=== PATIENT | female | born 1985 | race Caucasian/White ===

== ENCOUNTER 2024-12-05 16:33 | Observation (INO) | payer BC, OTHER ==
[2024-12-05] MEDS: Acetaminophen 500 MG Tab PO ONE ×2 (17:10→19:55)
[2024-12-05] MEDS: Lactated Ringers 1,000 ML IV SCH (17:10)
[2024-12-05 17:12] LABS: BASOPHILS ABSOLUTE AUTO 0.04 K/uL (0.00-0.10); BASOPHILS PERCENT AUTO 0.3 % (0.1-1.3); EOSINOPHILS ABSOLUTE AUTO 0.05 K/uL (0.00-0.40); EOSINOPHILS PERCENT AUTO 0.4 % (0.0-5.4); HEMATOCRIT 40.1 % (34.3-46.0); HEMOGLOBIN 13.7 g/dL (11.2-15.5); IMMATURE GRAN ABSOLUTE AUTO 0.05 K/uL (0.00-0.23); IMMATURE GRAN PERCENT AUTO 0.4 % (0.0-0.7); LYMPHOCYTES PERCENT AUTO 11.5 % (11.4-47.7); MEAN CORPUSCULAR HEMOGLOBIN 29.9 pg (31.6-35.5); MEAN CORPUSCULAR HGB CONC 34.2 g/dL (31.6-35.5); MEAN CORPUSCULAR VOLUME 87.6 fL (81.4-99.0); MONOCYTES ABSOLUTE AUTO 0.73 K/uL (0.20-0.90); NEUTROPHILS ABSOLUTE AUTO 9.86 K/uL (1.0-7.6); NEUTROPHILS PERCENT AUTO 81.4 % (40.0-78.1); PLATELET COUNT,PLT 386 K/uL (130-375); RED BLOOD CELL COUNT 4.58 M/uL (3.77-5.24); WHITE BLOOD CELL COUNT,WBC 12.1 K/uL (3.2-11.0)
[2024-12-05 17:32] LABS: A/G RATIO 0.8 (1.2-2.2); ALANINE AMINOTRANSFERASE,ALT 34 U/L (12-78); ALBUMIN 3.7 g/dL (3.4-5.0); ALKALINE PHOSPHATASE 124 U/L (46-116); ANION GAP 16.6 mmol/L (5.0-14.0); ASPARTATE AMNIOTRANSFERASE,AST 19 U/L (15-37); BILIRUBIN TOTAL 0.4 mg/dL (0.2-1.0); BLOOD UREA NITROGEN,BUN 8 mg/dL (7-18); C-REACTIVE PROTEIN 4.96 mg/dL (<0.50); CALCIUM 9.9 mg/dL (8.5-10.1); CARBON DIOXIDE,CO2 23 mmol/L (21-32); CHLORIDE,CL 97 mmol/L (100-108); CREATININE 0.7 mg/dL (0.6-1.0); EST CRCL DRUG DOSING (CG) 89.26 mL/min; ESTIMATED GFR 113 mL/min (>60); GLUCOSE RANDOM 99 mg/dL (74-106); POTASSIUM,K 3.6 mmol/L (3.6-5.2); PROTEIN TOTAL,TP 8.2 g/dL (6.4-8.2); SODIUM,NA 133 mmol/L (140-148)
[2024-12-05 17:37] LABS: LACTIC ACID 1.3 mmol/L (0.4-2.0)
[2024-12-05 17:45] LABS: APPEARANCE,URINE CLEAR (CLEAR); BILIRUBIN,URINE NEGATIVE (NEGATIVE); COLOR,URINE YELLOW (YELLOW); GLUCOSE,URINE NEGATIVE (NEGATIVE); KETONES,URINE NEGATIVE (NEGATIVE); LEUKOCYTE ESTERASE,URINE NEGATIVE (NEGATIVE); NITRITE,URINE NEGATIVE (NEGATIVE); OCCULT BLOOD,URINE NEGATIVE (NEGATIVE); PROTEIN,URINE NEGATIVE (NEGATIVE); UROBILINOGEN,URINE 0.2 EU/dL (0.2-1.0)
[2024-12-05] MEDS: Iopamidol 612 MG/ML 100 ML Bottle IV SCH (17:51)
[2024-12-05] MEDS: Sodium Chloride 0.9% 80 ML IV SCH (17:51)
[2024-12-05 17:57] LABS: AMORPHOUS SEDIMENT,URINE NOT SEEN; BACTERIA,URINE RARE; EPITHELIAL CELLS,URINE RARE; MUCUS,URINE NOT SEEN; RBC,URINE 0-5 (0-5); WBC,URINE NOT SEEN (0-5)
[2024-12-05] MEDS: Piperacillin/Tazobactam 3.375 GM in Sodium Chloride 0.9% 50 ML IV SCH (20:04)
[2024-12-05] MEDS ORDERED: Nicotine 7 MG/24 Hr Patch TRDERM PRN (21:24)
[2024-12-05] MEDS ORDERED: fentaNYL 50 MCG/ML SDV IVPUSH PRN ×3 (21:24→21:37)
[2024-12-05] MEDS ORDERED: diphenhydrAMINE 50 MG/ML SDV IVPUSH PRN (21:24)
[2024-12-05] MEDS ORDERED: Morphine 2 MG/ML SYRINGE IVPUSH PRN ×2 (21:24)
[2024-12-05] MEDS ORDERED: Ondansetron 4 MG/2 ML SDV IVPUSH PRN (21:24)
[2024-12-05] MEDS ORDERED: Promethazine 12.5 MG in Sodium Chloride 0.9% 50 ML IV PRN (21:24)
[2024-12-05] MEDS ORDERED: Morphine 4 MG/ML Syringe IVPUSH PRN (21:24)
[2024-12-05] MEDS ORDERED: Scopalamine 1mg/3day Transdermal Patch TOP PRN (21:24)
[2024-12-05] MEDS: Piperacillin/Tazobactam 4.5 GM in Sodium Chloride 0.9% 100 ML IV SCH (23:59)
[2024-12-06] MEDS: Sodium Chloride 0.9% 100 ML IV SCH (00:20)
[2024-12-06 05:54] LABS: HEMATOCRIT 40.4 % (34.3-46.0); HEMOGLOBIN 13.4 g/dL (11.2-15.5); MEAN CORPUSCULAR HEMOGLOBIN 29.4 pg (31.6-35.5); MEAN CORPUSCULAR HGB CONC 33.2 g/dL (31.6-35.5); MEAN CORPUSCULAR VOLUME 88.6 fL (81.4-99.0); RED BLOOD CELL COUNT 4.56 M/uL (3.77-5.24); WHITE BLOOD CELL COUNT,WBC 8.2 K/uL (3.2-11.0)
[2024-12-06 06:13] LABS: CALCIUM 9.3 mg/dL (8.5-10.1); CREATININE 0.8 mg/dL (0.6-1.0); EST CRCL DRUG DOSING (CG) 78.1 mL/min
[2024-12-06] MEDS: Piperacillin/Tazobactam/Dext 4.5 GM in Premix Bag 1 BAG IV SCH (08:07)
[2024-12-06] MEDS ORDERED: fentaNYL 250 MCG/5 ML SDV ONE ×2 (08:31→10:38)
[2024-12-06] MEDS ORDERED: Ondansetron 4 MG/2 ML SDV ONE (08:32)
[2024-12-06] MEDS ORDERED: Glycopyrrolate 0.2 MG/ML 5 ML MDV ONE (08:32)
[2024-12-06] MEDS ORDERED: Dexamethasone 4 MG/ML SDV ONE (08:32)
[2024-12-06] MEDS ORDERED: Propofol 200 MG/20 ML SDV ONE (08:32)
[2024-12-06] MEDS ORDERED: Succinylcholine 200 MG/10 ML MDV ONE (08:32)
[2024-12-06] MEDS ORDERED: Rocuronium 50 MG/5 ML Vial ONE (08:32)
[2024-12-06] MEDS ORDERED: Neostigmine Methylsulfate 10 MG/10 ML MDV ONE (08:32)
[2024-12-06] MEDS ORDERED: Labetalol 20 MG/4 ML Syringe ONE (10:45)
[2024-12-06] MEDS: Ropivacaine 30 ML, dexAMETHasone 8 MG, EPINEPHrine 0.4 MG, Sodium Chloride 0.9% 47.6 ML NERVRT SCH (10:57)
[2024-12-06] MEDS: Bupivacaine 0.5%/EPINEPHrine 1:200,000 50 ML MDV ONE (11:06)
[2024-12-06] MEDS ORDERED: droPERidol 5 MG/2 ML SDV ONE (11:27)
[2024-12-06] MEDS ORDERED: Ketorolac 30 MG/ML SDV ONE (11:28)
[2024-12-06] MEDS: Sodium Chloride 0.9% 1,000 ML IV SCH (12:16)
== END 2024-12-06 18:15 | disposition home or self-care (01) ==
LOC: JP.ED 16:33 → JP.MS 20:16 → INTOOBSV 20:16 → JP.2SS 21:16
PROVIDERS: ADMIT Surgery; ATTEND Surgery
DX: K35.80 Unspecified acute appendicitis (principal)
CPT/HCPCS: 00840; 36415; 44970; 74177; 80048; 80053; 81001; 81025; 83605; 85025; 85027; 86140; 87040; 87070; 87075; 87077; 87186; 87205; 88304; 96365; 96366; 99285; A9270; G0378; J0171; J0330; J1100; J1596; J1885; J1920; J2405; J2543; J2704; J2710; J2795; J3010; J3490; J7030; J7120; Q9967; J1790